=== PATIENT | male | born 1970 | race Caucasian/White ===

== ENCOUNTER 2022-10-27 12:52 | Outpatient (AMB) | payer BC, SELFPAY ==
--- NOTE | 2022-10-27 12:55 | MHC.OFFWIV ---
Intake Vital Signs 10/27/22 12:59 Height 5 ft 11 in Weight 275 lb BMI 38.4 BP 150/102 H Blood Pressure Location Lt brachial Position Sitting Pulse 78 Pulse Source Pulse Oximeter Pulse Oximetry (%) 95 Oxygen Delivery Method Room Air Intake Visit Reasons: EP, Left Index Laceration Intake Note: Patient here because he cut his finger while using a knife, he has a laceration on left index finger on knuckle. Patient Tobacco Use Status: Former Tobacco user Allergies No Known Allergies Allergy (Verified 10/27/22 13:15) Medication List - Last Reconciled 10/27/22 by Rizwan Kwok MD cyclobenzaprine 10 mg PO BID PRN dulaglutide (Trulicity) mg subcut duloxetine 30 mg PO DAILY empagliflozin (Jardiance) 10 mg PO DAILY hydrochlorothiazide 25 mg PO DAILY lisinopril 40 mg PO BID metoprolol succinate ER mg PO oxycodone 20 mg PO Q6H PRN Do you need a note to return to daycare/school/sports/work: No HPI EP, Left Index Laceration HPI Details [age] year old male presents to the office with a left index finger laceration. A sharp knife cut through his finger an hour ago. PFSH Social History Patient Tobacco Use Status: Former Tobacco user Physical Exam Vital Signs: Last Vital Signs Pulse 78 10/27/22 12:59 BP 150/102 H 10/27/22 12:59 Pulse Ox 95 10/27/22 12:59 Oxygen Delivery Method Room Air 10/27/22 12:59 BMI result Body Mass Index 38.4 Office Procedures Laceration Repair Details: Area of the wound clean with Betadine. 2% lidocaine infiltrated. Two sutures applied. Patient tolerated the procedure well. Wound approximation was adequate. Laceration repair performed by: Rizwan Kwok Location: Left index finger Length: 2.5cm Sedation: No Anesthesia: 2% lidocaine Irrigation: saline Preparation: chlorhexidine Wound exploration: none Deep closure: No Skin closure: nylon Technique: Simple sutures. Tetanus toxoid ordered: No Patient tolerated procedure: well [place] [id number] Repair <2.5cm Procedure code (CPT) selection complete Assessment & Plan Assessment & Plan (1) Open wound of left index finger: Code(s): S61.201A - Unspecified open wound of left index finger without damage to nail, initial encounter Plan: Patient tolerated procedure well. Instructed him to come next week to get the sutures removed. Orders: Orders Laceration repair Today S61.201A - Unspecified open wound of left index finger without damage to nail, initial encounter Coding Level of Care Code Est Pt Level 3 (17514) Diagnoses Open wound of left index finger S61.201A
[2022-10-27 12:59] VITALS: BP 150/102; PULSE 78; O2SAT 95; BMI 38.4
== END 2022-10-27 13:26 | disposition home or self-care (01) ==
PROVIDERS: PCP Internal Medicine; Visit Provider Internal Medicine
DX: S61.201A Unspecified open wound of left index finger without damage to nail, initial encounter (principal)
CPT/HCPCS: 99213

== ENCOUNTER 2024-06-11 10:04 | Outpatient (AMB) | payer OTHER, SELFPAY ==
--- NOTE | 2024-06-11 10:05 | MHC.OFFVIS ---
Vital Signs 06/11/24 10:06 Height 5 ft 11 in Weight 275 lb BMI 38.4 BP 204/112 H Blood Pressure Location Lt brachial Position Sitting Respiration 16 Pulse 94 Pulse Source Pulse Oximeter Pulse Oximetry (%) 97 Oxygen Delivery Method Room Air Intake Visit Reasons: Sacroiliitis Intake Note: Pt's BP grossly elevated, taken manually. Pt states he has not been taking his BP meds Allergies No Known Allergies Allergy (Verified 10/27/22 13:15) Medication List - Last Reconciled 06/11/24 by Selin Rowell LPN allopurinol 100 mg PO DAILY cyclobenzaprine 10 mg PO BID PRN empagliflozin (Jardiance) 10 mg PO DAILY hydrochlorothiazide 25 mg PO DAILY lisinopril 40 mg PO BID metoprolol succinate ER mg PO oxycodone 20 mg PO Q6H PRN rosuvastatin 20 mg PO DAILY semaglutide (Ozempic) mg subcut HPI HPI Sacroiliitis: Details: History of Present Illness The patient is a 53-year-old male presenting with chronic pain secondary to spinal issues. His symptoms originated following a work-related back injury in 2005. An aching sensation persists in the back and neck, and radiates down the arms and through the bilateral thighs. The patient has undergone multiple spinal surgeries, including a cervical fusion and a sacroiliac joint fusion. Treatment modalities such as physical therapy, chiropractic manipulation, and acupuncture have failed to deliver relief. He sees limited benefits from corticosteroid injections and medications like oxycodone and oral steroids. The patient's pain, initially managed with these interventions, has been increasing in intensity, particularly post-cervical surgery. Issues with the sacroiliac joint fusion have arisen, with concerns about loose hardware. His spinal cord stimulator, initially placed in 2012, has required recent battery updates, which offers mild but perceptible relief when operational. Pain Description - Onset: Pain began post-injury in 2005 - Quality: Aching sensation in back and neck pulling down arms, with radiation to the thighs - Location: Primarily in back, neck, and thighs - Exacerbating factors: Movement, certain activities - Relieving factors: Mild relief from past oral steroids, spinal cord stimulator when charged - Interference: Affects mobility and activities of daily living Physical Exam Results - CT Scan recommended for sacroiliac joint to evaluate for hardware loosening Pain Management - Affect: Pain impacts mood and sense of wellbeing - Analgesia: Oxycodone 20 mg four times daily, mild relief when spinal stimulator is active - Adverse Effects: No significant side effects reported from current medication regimen - Activities of Daily Living: Pain affects mobility and daily activities - Aberrant Drug Related Behaviors: None reported, current medication usage compliant with prescription [facility] Social History Patient Tobacco Use Status: Former Tobacco user Physical Exam Vital Signs: Last Vital Signs Pulse 94 06/11/24 10:06 Resp 16 06/11/24 10:06 BP 204/112 H 06/11/24 10:06 Pulse Ox 97 06/11/24 10:06 Oxygen Delivery Method Room Air 06/11/24 10:06 BMI result Body Mass Index 38.4 Assessment & Plan Assessment & Plan (1) S/P fusion of sacroiliac joint: Code(s): Z98.1 - Arthrodesis status Category: Medical (2) Presence of neurostimulator: Code(s): Z96.82 - Presence of neurostimulator Category: Medical (3) Cervical spinal stenosis: Comment: S/p C4/5, C5/6 ACDF. Awaiting C6/7 decompression Code(s): M48.02 - Spinal stenosis, cervical region Category: Medical Plan Plan A CT scan of the sacroiliac joint is planned to evaluate potential hardware loosening. A consultation with Meño from [employer] will be organized for adjustments to the spinal cord stimulator's programming to enhance pain relief. The patient will meet with his neurosurgeon to discuss potential future cervical spine surgery options. Further management will include reviewing outcomes from the CT and modifying the current stimulator strategy for optimal efficacy. Patient was informed and verbally consented to the use of an ambient scribe for clinic note documentation during this visit. Discussion Notes During the consultation, I reviewed the patient's chronic pain issues related to his spinal surgeries and degenerative changes. We discussed obtaining a CT scan of the sacroiliac joint to assess hardware integrity. We also explored programming options with [employer] to enhance the efficacy of the spinal cord stimulator. We discussed possible modifications and management plans pending the CT scan results, and a follow-up will be arranged after all scheduled checks are completed. The potential need for further surgical intervention in the cervical spine was deliberated, emphasizing the pros and cons related to his current clinical status and previous operative outcomes. Patient Instructions - Schedule a CT scan for the sacroiliac joint. - Arrange a meeting with Meño, the [employer] sales representative cash registers, for spinal stimulator adjustments. - Follow up with Fern Spence for cervical spine surgery consultation. - Monitor and report any new or worsening symptoms promptly. - Maintain current pain management regimen as prescribed. - Attend all scheduled follow-up appointments. Orders: Orders CT sacrum 06/11/24 Z98.1 - Arthrodesis status Coding Level of Care Code New Pt Level 4 (74748) Diagnoses S/P fusion of sacroiliac joint Z98.1 Presence of neurostimulator Z96.82 Cervical spinal stenosis M48.02
[2024-06-11 10:06] VITALS: BP 204/112; PULSE 94; RESP 16; O2SAT 97; BMI 38.4
--- OUTSIDE RECORDS SUMMARY | 2024-06-11 11:44 | XMS_ITS | Clinical Summary ---
Author Organization [facility] Address [facility] [place] [address] Care Team Providers Care Teletype Operator Name Role Phone Unavailable Primary Care Provider Unavailabl e Social History Tobacco Use Types Packs/Day Years Used Date Smoking Tobacco: Never Assessed Sex and Gender Information Value Date Recorded Sex Assigned at Not on file Gender Identity Not on file Sexual Orientation Not on file Last Filed Vital Signs Vital Sign Reading Time Taken Comments Blood Pressure 142/82 08/19/2015 2:16 PM EDT Sourced from [facility] Conversion Pulse - - Temperature - - Respiratory Rate - - Oxygen Saturation - - Inhaled Oxygen Concentration - - Weight 136 kg (299 lb 13.2 oz) 08/19/2015 2:16 PM EDT Sourced from [facility] Conversion Height 180 cm (5' 10.87 ) 08/19/2015 2: 16 PM EDT Sourced from [facility] Conversion Body Mass Index 41.98 08/19/2015 2:16 PM EDT Plan of Treatment Health Maintenance Due Date Last Done Comments CT Colonography 1969 Colonoscopy 1969 Colorectal Cancer Screening 1969 FIT DNA 1969 FIT 1969 Sigmoidoscopy (10 year) with FIT yearly 1969 Sigmoidoscopy 1969 HIV screen 08/07/1987 Hepatitis C Screening 08/07/1987 Lipid Screening 08/07/1987 Hepatitis B vaccine (0-59 yrs) and Risk (1) 1988 Tetanus/Diphtheria/Pertussis Vaccines (1 - Tdap) 08/06 Pneumoccocal Vaccine: 50+ (1 of 1 - PCV) 08/07/2019 Zoster vaccine (1 of 2) 08/07/2019 Covid-19 Vaccine (1 - 2023-25 season) 2023 Influenza (Flu) vaccine (1 o f 1 - Influenza standard series) 11/06/2023
--- OUTSIDE RECORDS SUMMARY | 2024-06-11 11:44 | XMS_ITS | Clinical Summary ---
Author Organization [facility] Address [address] [place] [address] Phone Care Team Providers Care Hog Slaughterer Name Role Phone Hoang Carpoi MD Primary Care Provider [phone] Encounters Date Type Department Care Team Description 03/15/2024 Telephone Neurosurgery [facility] [address] [facility] [address] [place] [phone] Sumi Hua [place] Radiology Order (Called [facility] regarding Order for Pt. Patient was asked ( in January ) by Radiology to provide make and model of stimulator so that they may prepare for MRI. Pt had not responded back with info to schedule. Authorization terms 03/16/24. No openings left for tomorrow, per staff person at MRI. ) from Last 3 Months Surgical History Surgery Date Site/Laterality Comments TOTAL KNEE ARTHROPLASTY PROCEDURE: NM ARTHRP KNE CONDYLE&PLATU MEDIAL&LAT COMPARTMENTS HERNIA REPAIR PROCEDURE: NM RPR 1ST INGUN HRNA AGE 5 MO-5 YRS REDUCIBLE SHOULDER SURGERY Right PROCEDURE: HISTORICAL SHOULDER SURGERY BACK SURGERY 06/2008 PROCEDURE: HISTORICAL BACK SURGERY; COMMENT: L4-S1 ALIF NECK SURGERY 10/27/2023 PROCEDURE: HISTORICAL NECK SURGERY; COMMENT: C4-5, C5-6 ACDF, Dr. Phillips Medical History Medical History Date Comments Essential hypertension DX:Essent ial hypertension Diabetes mellitus type 2, co ntrolled, with complications (CMS/HCC) DX:Diabetes mellitus type 2, controlled, with complications (HCC) Social History Tobacco Use Types Packs/Day Years Used Date Smoking Tobacco: Never Smokeless Tobacco: Never Sex and Gender Information Value Date Recorded Sex Assigned at Not on file Legal Sex Male 3:42 PM EDT Gender Identity Not on file Sexual Orientation Not on file Obstetrics History Last Filed Vital Signs Vital Sign Reading Time Taken Comments Blood Pressure - - Pulse - - Temperature - - Respiratory Rate - - Oxygen Saturation - - Inhaled Oxygen Concentration - - Weight 130 kg (286 lb) 11/08/2023 10:33 AM EDT Height 188 cm (6' 2 ) 11/08/2023 10:33 AM EDT Body Mass Index 36.72 11/08/2023 10:33 AM EDT Plan of Treatment Health Maintenance Due Date Last Done Comments Hepatitis A Vaccines (1 of 2 - Risk 2-dose series) 1988 Hepatitis B Vaccines (1 of 3 - 19+ 3-dose series) 1988 Zoster Vaccines (1 of 2) 1988 Pneumococcal Vaccine: 50+ Years (2 of 2 - PCV) 04/10/2015 04/10/2014 Pneumococcal Vaccine: Pediatrics (0 to 5 Years) and At-Risk Patients (6 to 64 Years) (2 of 2 - PCV) 04/10/2015 04/10/2014 COVID-19 Vaccine ( season) 2023 03/16/2021, 05/27/2020, 05/01/2020 Cholesterol Screening (Lipid Panel) 12/14/2023 Colorectal Cancer Screening: Colonoscopy 12/14/2023 Depression Screening 12/14/2023 03/18/2022 HIV Screening 12/14/2023 Hepatitis C Screening 12/14/2023 Medicare Annual Wellness Visit 12/14/2023 Social Influencers of Health Screening 12/14/2023 Hypertension/CHF/CAD Annual BMP Blood Test 07/26/2024 07/27/2023, 03/04/2020, 10/23/2018, Additional history exists Influenza Vaccine (Season Ended) 2024 11/28/2019, 01/08/2019, 01/24/2018, Additional history exists DTaP,Tdap,and Td Vaccines (3 - Td or Tdap) 01/06/2030 01/07/2020, 09/24/2008 HIB Vaccines Aged Out No longer eligi ble based on patient's age to complete this topic HPV Vaccines Aged Out No longer eligi ble based on patient's age to complete this topic IPV Vaccines Aged Out No longer eligi ble based on patient's age to complete this topic MMR Vaccines Aged Out No longer eligi ble based on patient's age to complete this topic Meningococcal ACWY Vaccine Aged Out N o longer eligible based on patient's age to complete this topic Meningococcal B Vacine Aged Out No lo nger eligible based on patient's age to complete this topic RSV Immunization Patients Under 20 months Aged Out No longer eligible based on patient's age to complete this topic Varicella Vaccines Aged Out No longer eligible based on patient's age to complete this topic Insurance [employer] Care Teams Hog Slaughterer Relationship Specialty Start Date End Date Hoang Carpio MD [address] [place] [address] [address] [place] [address] PCP - General 09/22/23
--- OUTSIDE RECORDS SUMMARY | 2024-06-11 11:44 | XMS_ITS | Clinical Summary ---
Author Organization [facility] Address [address] [place] [address] Care Team Providers Care Real Estate Accountant Name Role Phone Unavailable Primary Care Provider Unavailabl e Social History Tobacco Use Types Packs/Day Years Used Date Smoking Tobacco: Never Assessed Sex and Gender Information Value Date Recorded Sex Assigned at Not on file Gender Identity Not on file Sexual Orientation Not on file Plan of Treatment Health Maintenance Due Date Last Done Comments Hepatitis C Virus Screening 1969 HIV Screening 1982 DTaP/Tdap/Td Vaccines (1 - Tdap) 1988 Hepatitis B Vaccines (1 of 3 - 19+ 3-dose series) 1988 Pneumococcal Vaccines 50+ (1 of 1 - PCV) 08/07/2019 Zoster (Shingles) Vaccine (1 of 2) 08/07/2019 COVID-19 Vaccine ( - 2023-2 5 season) 2023 Pneumococcal Vaccine: Pediat graciela (0-5 Years) and At-Risk Patients (6 to 49 Years) Aged Out No longer eligible b ased on patient's age to complete this topic
== END 2024-06-11 10:38 | disposition home or self-care (01) ==
PROVIDERS: PCP Internal Medicine; Visit Provider Internal Medicine
DX: Z98.1 Arthrodesis status (principal); Z96.82 Presence of neurostimulator; M48.02 Spinal stenosis, cervical region
CPT/HCPCS: 99204

== ENCOUNTER → 2024-06-11 10:04 | Outpatient (BNVA) | payer OTHER, SELFPAY | PROVIDERS: PCP Internal Medicine; Visit Provider Internal Medicine | DX: M48.02 Spinal stenosis, cervical region (principal); Z98.1 Arthrodesis status; Z96.82 Presence of neurostimulator | CPT/HCPCS: 99202 ==

== ENCOUNTER 2024-08-31 09:02 | Outpatient (AMB) | payer BC, SELFPAY ==
--- NOTE | 2024-08-31 09:07 | MHC.OFFVIS ---
Vital Signs 08/31/24 09:09 Height 5 ft 11 in Weight 269 lb BMI 37.5 BP 199/98 H Blood Pressure Location Lt brachial Position Sitting Respiration 16 Pulse 90 Pulse Source Pulse Oximeter Pulse Oximetry (%) 97 Oxygen Delivery Method Room Air Intake Visit Reasons: Neck pain patient req Ammunition Assembly Ii Laborer Required: No Allergies No Known Allergies Allergy (Verified 08/31/24 09:10) Medication List - Last Reconciled 08/31/24 by Selin Rowell LPN allopurinol 100 mg PO DAILY cyclobenzaprine 10 mg PO BID PRN empagliflozin (Jardiance) 10 mg PO DAILY hydrochlorothiazide 25 mg PO DAILY lisinopril 40 mg PO BID metoprolol succinate ER mg PO oxycodone 20 mg PO Q6H PRN rosuvastatin 20 mg PO DAILY semaglutide (Ozempic) mg subcut HPI HPI Neck pain patient req: Details: History of Present Illness The patient is a 54-year-old male presenting with cervical and sacroiliac related issues. The patient has a history of cervical spine surgery at levels C4-5 and C5-6, performed through the anterior approach. He is currently experiencing cervical radicular pain, which has not responded to previous cervical spine surgery, chiropractic manipulation, physical therapy, and medications. The patient is also experiencing issues with the sacroiliac joint, although no specific interventions have been completed yet. There have been delays in scheduling a CT scan of the sacral marrow due to insurance issues. Pain Description - Cervical radicular pain not responsive to cervical spine surgery, chiropractic manipulation, physical therapy, and medications. Physical Exam - Limited cervical ROM, pain on ROM PFSH Social History Patient Tobacco Use Status: Former Tobacco user Physical Exam Vital Signs: Last Vital Signs Pulse 90 08/31/24 09:09 Resp 16 08/31/24 09:09 BP 199/98 H 08/31/24 09:09 Pulse Ox 97 08/31/24 09:09 Oxygen Delivery Method Room Air 08/31/24 09:09 BMI result Body Mass Index 37.5 Assessment & Plan Assessment & Plan (1) Cervical spinal stenosis: Comment: S/p C4/5, C5/6 ACDF. Awaiting C6/7 decompression Code(s): M48.02 - Spinal stenosis, cervical region Category: Medical (2) Cervical radicular pain: Code(s): M54.12 - Radiculopathy, cervical region Category: Medical Plan Plan - C7-T1 interlaminar JENNIFER cervical radicular pain management until further decompression surgery. - Follow up with Dr. Brush for further management of cervical spine issues. - Address insurance issues to facilitate CT scan scheduling for sacroiliac joint evaluation. Patient was informed and verbally consented to the use of an ambient scribe for clinic note documentation during this visit. Discussion Notes I discussed with the patient the plan to schedule an injection for cervical pain management before his vacation in September. We also reviewed the need for an MRI of the cervical spine and the follow-up with Dr. Reyes for further management. Additionally, I addressed the insurance issues delaying the CT scan for the sacroiliac joint evaluation. Patient Instructions - Schedule and attend the cervical spine MRI as planned. - Follow up with Dr. Brush for further evaluation and management of cervical spine issues. - Ensure all insurance information is updated to facilitate the CT scan scheduling. - Prepare for the cervical injection before the vacation in September. Coding Level of Care Code New Pt Level 4 (40781) Diagnoses Cervical spinal stenosis M48.02 Cervical radicular pain M54.12
[2024-08-31 09:09] VITALS: BP 199/98; PULSE 90; RESP 16; O2SAT 97; BMI 37.5
--- OUTSIDE RECORDS SUMMARY | 2024-08-31 09:20 | XMS_ITS | Clinical Summary ---
Author Organization 175 [facility] Address [address] [place] [address] Phone Care Team Providers Care Fuel Tank Sealer And Tester Name Role Phone Hoang Carpio MD Primary Care Provider [phone] Surgical History Surgery Date Site/Laterality Comments TOTAL KNEE ARTHROPLASTY PROCEDURE: [place] ARTHRP KNE CONDYLE&PLATU MEDIAL&LAT COMPARTMENTS HERNIA REPAIR PROCEDURE: LA RPR 1ST INGUN HRNA AGE 5 MO-5 YRS REDUCIBLE SHOULDER SURGERY Right PROCEDURE: HISTORICAL SHOULDER SURGERY BACK SURGERY 06/2008 PROCEDURE: HISTORICAL BACK SURGERY; COMMENT: L4-S1 ALIF NECK SURGERY 10/27/2023 PROCEDURE: HISTORICAL NECK SURGERY; COMMENT: C4-5, C5-6 ACDF, Dr. Phillips Medical History Medical History Date Comments Essential hypertension DX:Essent ial hypertension Diabetes mellitus type 2, co ntrolled, with complications (CMS/HCC V24, CMS/HCC V28) DX:Diabetes mellitus type 2, controlled, with complications ([facility]) Social History Tobacco Use Types Packs/Day Years [...] age to complete this topic Meningococcal B Vaccine Aged Out No l onger eligible based on patient's age to complete this topic RSV Immunization Patients Under 20 months Aged Out No longer eligible based on patient's age to complete this topic Varicella Vaccines Aged Out No longer eligible based on patient's age to complete this topic Insurance [employer] Care Teams Fuel Tank Sealer And Tester Relationship Specialty Start Date End Date Hoang Carpio MD [address] [place] [address] [address] [place] [address] PCP - General 09/22/23
== END 2024-08-31 09:34 | disposition home or self-care (01) ==
LOC: HO.PMC 09:02
PROVIDERS: PCP Internal Medicine; Visit Provider Internal Medicine
DX: M48.02 Spinal stenosis, cervical region (principal); M54.12 Radiculopathy, cervical region
CPT/HCPCS: 99214